=== PATIENT | female | born 1950 | race Caucasian/White ===

== ENCOUNTER 2021-04-17 13:13 | Emergency (ER) | payer MEDICARE ==
[~2021-04-17] VITALS: Ht 149.9 cm; Wt 65.0 kg
[2021-04-17 13:26] VITALS: BP 143/69
[2021-04-17] MEDS ORDERED: AMOX1TAB11 PO (14:00)
[2021-04-17] MEDS ORDERED: AMOXICILLIN/K CLAV 875/125MG TABLET. PO ONE (14:00)
--- NOTE | 2021-04-17 14:00 | PHYS DOC ---
Past Medical History Past Surgical History: Appendectomy, Cholecystectomy, Hysterectomy, Tonsi llectomy Smoking Status: Current Every Day Smoker Additional Information: 2 PPD Alcohol Use: Rarely General Adult EDM: Chief Complaint: DENTAL PROBLEM HPI: HPI: Patient is a 71-year-old female who presents to the emergency department c omplaining of pain and swelling to her left lower molar where she has had a broken tooth for the past "several years ". Patient reports a 2 out of 10 pain. Reports she woke up this morning and noticed swelling, has had dental infections in the past and wanted to start on antibiotics soon. Patient reports she is on Medicaid and is unable to find a dentist to help her. Patient denies numbness or tingling to her face mouth or tongue. Denies fever or chills. Denies neck pain, ear pain, eye pains, nausea or vomiting. Denies problems swallowing. Patient reports she has taken a 500 mg naproxen with good relief of pain, reports she has swish and spit with warm salt water this morning, also used diluted hydrogen peroxide to swish and spit. Patient denies other physical complaints or physical concerns. Review of Systems: Review of Systems: 14 body systems of review of systems have been reviewed. See HPI for pertinent positives and negative responses, otherwise all other systems are negative, nonpertinent or noncontributory. Constitutional: Negative except as outlined in HPI above. Skin: Negative except as outlined in HPI above. Eyes: Negative except as outlined in HPI above. HENT: Negative except as outlined in HPI above. Respiratory: Negative except as outlined in HPI above. Cardiovascular: Negative except as outlined in HPI above. GI: Negative except as outlined in HPI above. : Negative except as outlined in HPI above. Musculoskeletal: Negative except as outlined in HPI above. Integument: Negative except as outlined in HPI above. Neurologic: Negative except as outlined in HPI above. Endocrine: Negative except as outlined in HPI above. Lymphatic: Negative except as outlined in HPI above. Psychiatric: Negative except as outlined in HPI above. Heart Score: C/O Chest Pain: No Risk Factors: Risk Factors: DM, Current or recent (<one month) smoker, HTN, HLP, family history of CAD, obesity. Risk Scores: Score 0 - 3: 2.5% MACE over next 6 weeks - Discharge Home Score 4 - 6: 20.3% MACE over next 6 weeks - Admit for Clinical Observation Score 7 - 10: 72.7% MACE over next 6 weeks - Early Invasive Strategies Allergies: Allergies: Allergies Coded Allergies Type Severity Reaction Last Updated Verified acetaminophen Allergy Severe ANAPHYLAXIS 04/17/21 Yes propoxyphene Allergy Severe ANAPHYLAXIS 04/17/21 Yes Physical Exam: PE: Constitutional: Appears well, nontoxic, uncomfortable. HENT: Normocephalic, atraumatic, bilateral external ears normal, oropharynx moist, no oral exudates, nose normal. Uvula midline. No trismus. No drooling. Maintaining secretions. No phonation changes. No facial swelling. No periapical abscess. Minor gum swelling with erythema at tooth #18 with exudative drainage from decayed tooth, marked dental caries with teeth in multiple stages of decay. Eyes: PERRLA, EOMI, conjunctiva normal, no discharge. Neck: Normal range of motion, trachea midline, normal ROM, no stridor, no nuchal rigidity, no meningeal signs. Cardiovascular: Normal peripheral perfusion, no cyanosis appreciated. Lungs & Thorax: Normal WOB. No tachypnea. No audible adventitious lung sounds appreciated, no respiratory distress appreciated. Skin: Warm, dry, no erythema, no rash, normal for ethnicity. Musculoskeletal: Normal ROM. Neurologic: Alert and oriented X 3, normal motor function, normal sensory function, no focal deficits noted. Psychologic: Affect normal, judgement normal, mood normal. Current Patient Data: Vital Signs: Vital Signs Date Time Temp Pulse Resp B/P (MAP) Pulse Ox O2 Delivery O2 Flow Rate FiO2 04/17/21 13:26 98.1 98 20 143/69 (93) 98 Room Air 98.1 EKG: EKG: [] Radiology/Procedures: Radiology/Procedures: [] Course & Med Decision Making: Course & Med Decision Making Pertinent Labs and Imaging studies reviewed. (See chart for details) 71-year-old female, vital signs reviewed, presents to the emergency department concerning dental pain that started this morning. Physical examination reveals marked dental caries with teeth in multiple stages of decay, patient's complaint tooth has scant purulent drainage with erythematous gum, no definitive periapical abscess appreciated, discussed with patient will start on antibiotics, continue taking Naprosyn at home for pain control, continue warm salt water swish and spits, strict follow-up with dentist soon, will provide list of dental providers for discharge instructions, reviewed return to ED precautions and concerns, patient gave verbal understanding of and is amenable to ED discharge planning. Discussed with the patient all findings and diagnostic testing as well as the need to follow-up with their primary care provider for further evaluation and treatment or return to the ED if any new or worsening symptoms. Strict return precautions were also discussed at length, the patient voiced understanding and agreement with the discharge planning. The patient was nontoxic in appearance, in no apparent distress, and hemodynamically stable at the time of disposition. Dragon Disclaimer: [email or web address] Disclaimer: This electronic medical record was generated, in whole or in part, using a voice recognition dictation system. Departure Departure Impression: Primary Impression: Dental abscess Additional Impression: Dental caries Disposition: HOME / SELF CARE / HOMELESS Condition: GOOD Referrals: YUE KIMBLE MD (PCP) Patient Instructions: Dental Abscess, Dental Caries Additional Instructions: You were seen today in the emergency department for dental pain with swelling on a left lower molar. You have an infected tooth. As we discussed, I am starting you on an antibiotic that you will take twice a day for the next 2 weeks. Please take as directed until complete. Continue to use your Naprosyn for discomfort. Continue salt water swish and spits and good oral care. I have provided a list of various dental clinics, please find a dentist and see soon for ongoing management of your broken and decayed teeth. Return to the emergency department for worsening symptoms or other concerns. Thank you for visiting our Emergency Department. It was a pleasure taking care of you today in the emergency department and we appreciate you trusting us with your care. If any additional problems come up don't hesitate to return to visit us. Please follow up with your primary care provider so they can plan additional care if needed and know about the problem that you had. If symptoms worsen come back to the Emergency Department. Any concerning symptoms that start such as chest pain, shortness of air, weakness or numbness on one side of the body, running high fevers or any other concerning symptoms return to the ER. Scripts Amoxicillin/Potassium Clav (AMOX TR-K CLV 875-125 MG TAB) 1 Each Tablet 1 TAB PO BID for Dental infection for 14 Days, #28 TAB 0 Refills Take 1 tablet twice a day for the next 14 days. Prov: LIYA RODRIGUEZ APRN 04/17/21 LIYA RODRIGUEZ APRN Apr 17, 2021 14:00
== END 2021-04-17 14:22 | disposition home or self-care (01) ==
LOC: ER 13:13
DX: K04.7 Periapical abscess without sinus (principal); K02.9 Dental caries, unspecified; F17.200 Nicotine dependence, unspecified, uncomplicated; Z88.6 Allergy status to analgesic agent; Z88.8 Allergy status to other drugs, medicaments and biological substances
CPT/HCPCS: 99283